=== PATIENT | female | born 1985 | race Caucasian/White ===

== ENCOUNTER 2023-05-09 17:48 | Emergency (ER) | payer OTHER, SELFPAY ==
[2023-05-09 17:50] VITALS: BP 157/74; PULSE 112; RESP 18; O2SAT 98; BMI 24.2
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
[2023-05-09] MEDS: ACETAMINOPHEN 500 MG TABLET 1000 MG PO (18:05)
[2023-05-09] MEDS: BACITRACIN 0.9 GM PACKET 1 PACKET TOPICAL (18:05)
[2023-05-09] MEDS: ADACEL DIPH,PERTUSS(ACELL),TET VAC/PF 0.5 ML ADULT SYRINGE IM (18:05)
[2023-05-09] MEDS: IBUPROFEN 600 MG TABLET PO (18:05)
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
== END 2023-05-09 18:16 | disposition home or self-care (01) ==
PROVIDERS: Emergency Provider Emergency Medicine
DX: T23.232A Burn of second degree of multiple left fingers (nail), not including thumb, initial encounter (principal); X10.2XXA Contact with fats and cooking oils, initial encounter; Z23 Encounter for immunization
CPT/HCPCS: 90471; 90715; 99284

== ENCOUNTER 2024-09-01 06:26 | Emergency (ER) | payer SELFPAY ==
[2024-09-01 06:34] VITALS: BP 132/76; PULSE 43; TEMP 37.2; O2SAT 98; BMI 22.7
[2024-09-01 07:14] VITALS: BP 120/80; PULSE 100; O2SAT 100
[2024-09-01] MEDS: KETOROLAC TROMETHAMINE 30 MG/ML VIAL 15 MG IVP (07:41)
[2024-09-01 07:47] LABS: Basophils Absolute Auto 0.1 10^3/uL (0.0-0.1); Basophils Percent Auto 0.3 % (0.2-2.0); Eosinophils Absolute Auto 0.1 10^3/uL (0.0-0.7); Eosinophils Percent Auto 0.8 % (0.9-7.0); Hematocrit 37.4 % (36.0-48.0); Hemoglobin 12.6 g/dL (12.0-16.0); Immature Granulocytes Abs Auto 0.07 10^3/uL (0.00-0.03); Immature Granulocytes Pct Auto 0.5 % (0.0-0.5); Lymphocytes Absolute Auto 1.7 10^3/uL (1.2-3.8); Lymphocytes Percent Auto 11.8 % (20.5-60.0); Mean Corpuscular HGB Conc 33.7 g/dL (29.9-35.2); Mean Corpuscular Hemoglobin 31.7 pg (26.7-34.0); Mean Platelet Volume 11.6 fL (9.5-13.5); Monocytes Absolute Auto 1.2 10^3/uL (0.3-0.8); Monocytes Percent Auto 8.4 % (1.7-12.0); Neutrophils Absolute Auto 11.4 10^3/uL (1.4-6.5); Neutrophils Percent Auto 78.2 % (43.0-75.0); Platelet Count 262 10^3/uL (150-450); Red Blood Count 3.98 10^6/uL (4.20-5.40); White Blood Count 14.6 10^3/uL (4.0-11.0)
[2024-09-01 07:57] LABS: HCG Qualitative NEGATIVE (NEGATIVE); Internal Control Within Normal Limits
[2024-09-01 08:01] LABS: INR 1.01; Prothrombin Time 10.7 sec (9.0-11.6)
[2024-09-01 08:08] LABS: Alanine Aminotransferase 23 U/L (14-59); Albumin Globulin Ratio 0.9; Albumin Level 3.4 g/dL (3.4-5.0); Alkaline Phosphatase 76 U/L (46-116); Anion Gap 14.2; Aspartate Amino Transferase 15 U/L (15-37); BUN Creatinine Ratio 11.8; Bilirubin Total 0.4 mg/dL (0.2-1.0); Calcium 8.5 mg/dL (8.5-10.1); Carbon Dioxide 26.2 mmol/L (21.0-32.0); Chloride 106 mmol/L (98-107); Estimated GFR (African America >60 (>=60 mL/min/1.73m^2); Estimated GFR (Non-African Ame >60 (>=60 mL/min/1.73m^2); Globulin 3.6 g/dL; Glucose 95 mg/dL (74-106); Potassium 3.4 mmol/L (3.5-5.1); Sodium 143 mmol/L (136-145)
[2024-09-01 08:11] LABS: Lactate/Lactic Acid 0.7 mmol/L (0.4-2.0)
--- NOTE | 2024-09-01 08:11 | CT_ITS ---
[address] [address] Patient Name: JUAN JARQUIN MRN: [id number] date: 1985 Sex: F Assigned Patient Location: ER Current Patient Location: ER Accession/Order Number: [id number] Exam Date: 09/01/2024 08:25 Report Date: 09/01/2024 08:55 At the request of: DANETTE JOSEPH Procedure: CT abdomen pelvis w con EXAMINATION: CT abdomen pelvis w con HISTORY: perirectal abscess ? COMPARISON: No relevant comparison available. TECHNIQUE: CT images were created with IV contrast. Axial, Coronal, and Sagittal images. Dose reduction techniques were achieved by using automated exposure control and/or adjustment of mA and/or kV according to patient size and/or use of iterative reconstruction technique. FINDINGS: LUNG BASES: 7 mm subpleural nodule left lower lobe axial image #23 LIVER: Hepatomegaly with no focal mass BILIARY: No visible dilatation or calcification. PANCREAS: No lesion, fluid collection, ductal dilatation, or atrophy. SPLEEN: No enlargement or focal lesion. ADRENALS: No mass or enlargement. KIDNEYS: No mass, obstruction, or calcification. BOWEL/MESENTERY: No visible mass, obstruction, or bowel wall thickening. AORTA/VASCULAR: No aneurysm or dissection. RETROPERITONEUM: No mass or adenopathy. LYMPH NODES: No adenopathy. URINARY BLADDER: No visible focal wall thickening, lesion, or calculus. PELVIC ORGANS: Dilated left periuterine vessels, consider uterine vein reflux ABDOMINAL WALL: No mass or hernia. BONES: No bony lesion or fracture. OTHER: Rim-enhancing fluid collection adjacent to the right rectum measuring 2.7 x 1.9 cm on axial image #143 CT/CT abdomen pelvis w con IMPRESSION: 2.7 cm right perirectal abscess. Electronically authenticated by: JONES SHIELDS Date: 09/01/2024 08:55
--- NOTE | 2024-09-01 09:08 | ED.GENADUL1 ---
HPI HPI - General Adult General Chief complaint: Urogenital-Female Stated complaint: LOWER ABDOMINAL PAIN Time Seen by Provider: 09/01/24 07:21 Source: patient Mode of arrival: walk-in Limitations: no limitations History of Present Illness HPI narrative: The patient is coming to us with few days history of perirectal pain and chills at home the patient is complaining of severe pain in the rectal area, she denies any nausea or vomiting at the moment she also denies any other concerns She mentioned that she never had any similar presentation before Related Data Previous Rx's ?Medication ?Instructions ?Recorded bacitracin zinc 500 unit/gram 1 applic topical BID 7 days #14 05/09/23 topical ointment grams ibuprofen 600 mg tablet 600 mg PO TID PRN pain #30 tabs 05/09/23 Allergies Allergy/AdvReac Type Severity Reaction Status Date / Time Penicillins Allergy Hives Verified 09/01/24 06:37 Opioid HPI Opioid Management Most Recent Opioid Data: Last Pain Scale 10 09/01/24 09:17 09/01/24 Last ED Pain Assessment 09/01/24 10:02 Last MAR Pain Assessment 09/01/24 09:17 Review of Systems ROS Status of ROS 10 or more systems reviewed and unremarkable except as noted in history and below PFSH PFSH Social History Little interest or pleasure in doing things: not at all Feeling down, depressed, or hopeless: not at all Exam Narrative Exam Narrative: Nurses notes and vital signs reviewed and patient is not hypoxic. Per rectal exam: The patient is very sensitive to examination that she is in a lot of pain . Pain is mostly in the right side and there is a area of redness noted on examination that extending around the rectum on the right side patient is very tender to rectal examination and she is not allowing a proper exam because of the pain General: Well-appearing and in no apparent distress. Skin: Warm, dry, no pallor noted. No rash. Head: Normocephalic, atraumatic. Neck: Supple, non-tender. Eye: Pupils are equal, round and EOMI. No scleral icterus. Ears, Nose, Mouth, and Throat: TM are clear, no nasal mucosal hypertrophy. Oral mucosa is moist, no posterior oropharynx erythema, uvula is mid-line Cardiovascular: Regular Rate and Rhythm without murmur, gallop or rub. Respiratory: No accessory muscle use or respiratory distress. Lungs are clear to auscultation, no wheezing, rales or rhonchi Chest Wall: no tenderness Back: No midline thoracic or lumbar vertebral tenderness. No CVA tenderness Musculoskeletal: normal ROM, no calf or popliteal tenderness, no lower extremity edema/swelling GI: Abdomen is soft, non-distended. Normal bowel sounds. No masses appreciated. No tenderness to palpation. No rebound, guarding, or rigidity noted. Neurological: A&O x4. No cranial nerve dysfunction observed. No truncal ataxia. Moves all extremities. Sensation intact. Psychiatric: Cooperative and interactive. Normal mood and affect. Constitutional Vital Signs, click to edit/add: Last Vital Signs Temp 98.9 F 09/01/24 06:34 Pulse 76 09/01/24 09:15 Resp 18 09/01/24 09:15 BP 108/83 09/01/24 09:15 Pulse Ox 99 09/01/24 09:15 O2 Del Method Room Air 09/01/24 09:15 Course Vital Signs Vital signs: Vital Signs Temperature 98.9 F 09/01/24 06:34 Pulse Rate 43 L 09/01/24 06:34 Respiratory Rate 16 09/01/24 06:34 Blood Pressure 132/76 09/01/24 06:34 Pulse Oximetry 98 09/01/24 06:34 Oxygen Delivery Method Room Air 09/01/24 06:34 Temperature 98.9 F 09/01/24 06:34 Pulse Rate 76 09/01/24 09:15 Respiratory Rate 18 09/01/24 09:15 Blood Pressure 108/83 09/01/24 09:15 Pulse Oximetry 99 09/01/24 09:15 Oxygen Delivery Method Room Air 09/01/24 09:15 Medical Decision Making [facility] Narrative Medical decision making narrative: The patient CBC shows leukocytosis Chemistry showing no acute significant pathology and the patient had a CAT scan showing perirectal abscess of 2.7 cm With the fact that the patient is having a lot of pain she initially was treated with Toradol after that she was provided also with morphine for pain She had some drainage in the area that is open foul-smelling pus that was spontaneous on the bedding The patient was covered with Cipro and Flagyl for infection The patient right now Case discussed with the Dr Powell general surgery from [facility] and he agreed that the patient can be transferred under the care of the hospitalist Dr. Miles accepted the patient and the patient right now awaiting to be transferred The at the bedside opted to take the patient by private car so they would not wait for the transfer to take longer to get there Lab Data Labs: Lab Results 09/01/24 Range/Units 07:30 WBC 14.6 H (4.0-11.0) 10^3/uL RBC 3.98 L (4.20-5.40) 10^6/uL Hgb 12.6 (12.0-16.0) g/dL Hct 37.4 (36.0-48.0) % MCV 94.0 (81.0-99.0) fL MCH 31.7 (26.7-34.0) pg MCHC 33.7 (29.9-35.2) g/dL RDW 12.0 (11.0-15.0) % Plt Count 262 (150-450) 10^3/uL MPV 11.6 (9.5-13.5) fL Neut % (Auto) 78.2 H (43.0-75.0) % Lymph % (Auto) 11.8 L (20.5-60.0) % [place] % (Auto) 8.4 (1.7-12.0) % Eos % (Auto) 0.8 L (0.9-7.0) % Baso % (Auto) 0.3 (0.2-2.0) % Neut # (Auto) 11.4 H (1.4-6.5) 10^3/uL Lymph # (Auto) 1.7 (1.2-3.8) 10^3/uL [place] # (Auto) 1.2 H (0.3-0.8) 10^3/uL Eos # (Auto) 0.1 (0.0-0.7) 10^3/uL Baso # (Auto) 0.1 (0.0-0.1) 10^3/uL Abs Immat Gran (auto) 0.07 H (0.00-0.03) 10^3/uL Imm/Tot Granulo (auto) 0.5 (0.0-0.5) % PT 10.7 (9.0-11.6) sec INR 1.01 Sodium 143 (136-145) mmol/L Potassium 3.4 L (3.5-5.1) mmol/L Chloride 106 (98-107) mmol/L Carbon Dioxide 26.2 (21.0-32.0) mmol/L Anion Gap 14.2 BUN 10.0 (7.0-18.0) mg/dL Creatinine 0.85 (0.55-1.02) mg/dL Est GFR ( Amer) >60 (>=60 mL/min/1.73m^2) Est GFR (Non-Af Amer) >60 (>=60 mL/min/1.73m^2) BUN/Creatinine Ratio 11.8 Glucose 95 (74-106) mg/dL Lactate 0.7 (0.4-2.0) mmol/L Calcium 8.5 (8.5-10.1) mg/dL Total Bilirubin 0.4 (0.2-1.0) mg/dL AST 15 (15-37) U/L ALT 23 (14-59) U/L Alkaline Phosphatase 76 (46-116) U/L Total Protein 7.0 (6.4-8.2) g/dL Albumin 3.4 (3.4-5.0) g/dL Globulin 3.6 g/dL Albumin/Globulin Ratio 0.9 Serum HCG, Qual Negative (NEGATIVE) Discharge Plan Discharge Chief Complaint: Urogenital-Female Clinical Impression: Abscess, perirectal Patient Disposition: [facility] Time of Disposition Decision: 12:16
[2024-09-01 09:15] VITALS: BP 108/83; PULSE 76; O2SAT 99
[2024-09-01] MEDS: MORPHINE SULFATE 2 MG/ML SYRINGE IV ×2 (09:17→17:04)
[2024-09-01] MEDS: LIDOCAINE HCL 1% 100 MG/10 ML MDV INJ (09:18)
[2024-09-01] MEDS: METRONIDAZOLE/SODIUM CHLORIDE 500 MG/100 ML PREMIX 100 MG IV (10:06)
[2024-09-01] MEDS: CIPROFLOXACIN IN 5 % DEXTROSE 400 MG/200 ML PREMIX 200 MG IV (11:05)
[2024-09-01 13:58] VITALS: BP 121/75; PULSE 78; O2SAT 99
--- NOTE | 2024-09-01 17:05 | PC.NURSE ---
[facility] here at this time for transport.
== END 2024-09-01 17:10 | disposition short-term general hospital (02) ==
PROVIDERS: Emergency Provider Emergency Medicine
DX: K61.1 Rectal abscess (principal)
CPT/HCPCS: 36415; 74177; 80053; 83605; 84703; 85025; 85610; 87040; 96365; 96366; 96368; 96375; 96376; 99285; J0744; J1836; J1885; J2270; Q9967

== ENCOUNTER 2024-10-26 18:09 | Emergency (ER) | payer SELFPAY ==
--- OUTSIDE RECORDS SUMMARY | 2024-10-26 18:18 | XMS_ITS | CCD ---
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 Name Role Phone PHYSICIAN, DEFAULT Unavailable Unavailable PHYSICIAN, DEFAULT Unavailable Unavailable REQUEST, NONE LISTED Primary Care Unavailable BASILIO DASILVA Admitting Unavailable BASILIO DASILVA Consulting Unavailable BASILIO DASILVA Attending Unavailable REQUEST, NONE LISTED Admitting Unavailable REQUEST, NONE LISTED Attending Unavailable Unavailable Primary Care Provider Unavailabl e Unallocated , Noms Provider Primary Care Provi radhames CRISTOFER POWELL Attending Unavailable Ha Roman Consulting Unavailable NON STAFF Primary Care Unavailable Rajesh Noriega Admitting Unavailable Rajesh Noriega Attending Unavailable Royal Malcolm Consulting Unavailable Cristofer Powell Consulting Unavailable Cristofer Powell Attending Unavailable Cristofer Powell Referring Unavailable NON STAFF Primary Care Unavailable Cristofer Powell Admitting Unavailable Allergies Allergy Classification Reported Allergen(s) Allergy Type Date of Onset Reaction(s) Facility (3 sources) Penicillins Drug allergy (disorder) 6 [facility] Repository (2 sources) Penicillins Drug Intolerance 7 [facility] (1 source) Penicillins Drug allergy (disorder) 4 [facility] Repository Medications Current Medications Medication Drug Class(es) Dates Sig (Normalized) Sig (Original) acetaminophen 325 mg / oxyCODONE hydrochloride 5 mg oral tablet (2 sources) Opioid Agonist Start: 09-04-2024 take 1 tablet by mouth every eight hours oxyCODONE-acetamin ophen (Percocet) 5-325 MG tablet Take 1 tablet by mouth every 8 (eight) hours 09/04/2024 Active [id number] 200 actuat albuterol 0.09 mg/actuat metered dose inhaler (1 source) beta2-Adrenergic Agonist Start: 12-06-2023 take 1 puff(s) by inhalation four times daily Albuterol Sulfate Active 2 PUFF INHALATION Four times daily 8.5 December 06, 2023 12:00am benzonatate 200 mg oral capsule (1 source) Non-narcotic Antitussive Start: 12-06-2023 Benzonatate Active 200 MG PO 2-3 TIMES PER DAY 30 December 06, 2023 12:00am doxycycline hyclate 100 mg oral capsule (1 source) Tetracycline-class Drug Start: 12-06-2023 take 100 mg by mouth twice daily Doxycycline Hyclate Active 100 MG PO Twice daily 20 December 06, 2023 12:00am levoFLOXacin 750 mg oral tablet (2 sources) Quinolone Antimicrobial Start: 09-03-2024 take 1 tablet by mouth once daily levoFLOXacin (Levaquin) 750 MG tablet TAKE 1 TABLET BY MOUTH DAILY for 12 days 09/03/2024 Active metroNIDAZOLE 500 mg oral tablet (2 sources) Nitroimidazole Antimicrobial Start: 09-03-2024 take 1 tablet by mouth every eight hours metroNIDAZOLE (Flagyl) 500 MG tablet TAKE 1 TABLET BY MOUTH EVERY 8 HOURS for 12 days 09/03/2024 Active predniSONE 20 mg oral tablet (1 source) Start: 12-06-2023 take 20 mg by mouth twice daily Prednisone Active 20 MG PO Twice daily 10 5 December 06, 2023 12:00am Problems Problem Classification Problem Date Documented Da te Episodic/Chronic Anal and rectal conditions (6 sources) Perirectal abscess; Translations: [Rectal abscess] Onset: 09-01-2024 09-07-2024 Episodic Diseases of white blood cells (1 source) Elevated white blood cell count, unspecified; Translations: [Elevated white blood cell count, unspecified] Onset: 09-01-2024 Chronic Other lower respiratory disease (3 sources) Cough; Translations: [COUGH] Onset: 01-01-2021 Episodic Other upper respiratory infections (1 source) Acute upper respiratory infection, unspecified; Translations: [ACUTE UP RESPIRATORY INFECTION UNS] Onset: 01-02-2021 Episodic Skin and subcutaneous tissue infections (1 source) Cutaneous abscess, unspecified; Translations: [Cutaneous abscess, unspecified] Onset: 09-01-2024 Episodic Unclassified (1 source) CONTACT W/AND (SUSP) EXPOS COVID-19; Translations: [CONTACT W/AND (SUSP) EXPOS COVID-19] Onset: 01-02-2021 Viral infection (1 source) Viral infection, unspecified; Translations: [VIRAL INFECTION UNSPECIFIED] Onset: 01-02-2021 Episodic Results Test Name Value Interpretation Reference Range Facility Complete Blood Count Auto Di ffon 09-03-2024 Basophils (Bld) [#/Vol] 0.1 10*3/uL Normal 0.0-0.2 [facility] Comment on above: Result Comment: PERF ORMED BY: [place] [address] PATHOLOGIST SYSTEM DISPATCHER ENRIQUE TENA M.D. Performed By: #### C BC #### [address] Basophils/100 WBC (Bld) 0.7 % Normal . [facility] Comment on above: Performed By: #### C BC #### [address] Eosinophils (Bld) [#/Vol] 0.3 10*3/uL Normal 0.0-0.45 [facility] Comment on above: Performed By: #### C BC #### [address] Eosinophils/100 WBC (Bld) 2.4 % Normal . [facility] Comment on above: Performed By: #### C BC #### [address] Erythrocyte distribution width (RBC) [Ratio] 12.4 % Normal 11.9-15.3 [facility] Comment on above: Performed By: #### C BC #### [address] Hematocrit (Bld) [Volume fraction] 32.5 % Low 34.0-46.4 [facility] Comment on above: Performed By: #### C BC #### [address] Hemoglobin (Bld) [Mass/Vol] 10.9 g/dL Low 11.8-15.4 [facility] Comment on above: Performed By: #### C BC #### [address] Lymphocytes (Bld) [#/Vol] 1.8 10*3/uL Normal 1.00-4.8 [facility] Comment on above: Performed By: #### C BC #### [address] Lymphocytes/100 WBC (Bld) 17.3 % Normal . [facility] Comment on above: Performed By: #### C BC #### [address] MCH (RBC) [Entitic mass] 31.3 pg Normal 24.7-34.3 [facility] Comment on above: Performed By: #### C BC #### [address] MCV (RBC) [Entitic vol] 93.0 fL Normal 80-100 [facility] Comment on above: Performed By: #### C BC #### [address] Mean Corpuscular HGB Conc 33.6 g/dL Normal 32.0-35.0 [facility] Comment on above: Performed By: #### C BC #### [address] Monocytes (Bld) [#/Vol] 0.9 10*3/uL High 0.0-0.8 [facility] Comment on above: Performed By: #### C BC #### [address] Monocytes/100 WBC (Bld) 8.4 % Normal . [facility] Comment on above: Performed By: #### C BC #### [address] Neutrophils (Bld) [#/Vol] 7.3 10*3/uL Normal 1.8-7.7 [facility] Comment on above: Performed By: #### C BC #### [address] Neutrophils/100 WBC (Bld) 71.2 % Normal . [facility] Comment on above: Performed By: #### C BC #### [facility] [address] NRBC% 0.0 /100{WBC} Normal 0-0.5 [facility] Comment on above: Performed By: #### C BC #### [address] Platelet mean volume (Bld) [Entitic vol] 9.7 fL Normal 6.3-10.7 [facility] Comment on above: Performed By: #### C BC #### [address] Platelets (Bld) [#/Vol] 218 10*3/uL Normal 150-450 [facility] Comment on above: Performed By: #### C BC #### [address] RBC (Bld) [#/Vol] 3.50 10*6/uL Low 3.60-5.00 [facility] Comment on above: Performed By: #### C BC #### [address] WBC (Bld) [#/Vol] 10.2 10*3/uL Normal 3.8-11.6 [facility] Comment on above: Performed By: #### C BC #### [address] Aerobic Cultureon 09-02-2024 Aerobic Culture Comment perirectal abscess Result Tab Codes Rare Normal Skin Nelly 2 Days Comment perirectal abscess Anaerobic Culture Results Moderate Mixed Anaerobic Nelly 3 Days Comment perirectal abscess Gram Stain Result 4+ White Blood Cells 1+ Gram Positive Cocci 1+ Gram Positive Cocci in Chains Rare Gram Positive Bacilli Rare Gram Negative Bacilli PERFORMED BY: [place] [address] PATHOLOGIST SYSTEM DISPATCHER ENRIQUE TENA M.D. Normal [facility] Comment on above: Performed By: #### G S, AERC #### [address] Basic Metabolic Panelon 12- Anion gap [Moles/Vol] 11.5 mmol/L Normal 6.0-15.0 Th e [facility] Comment on above: Performed By: #### C BC, BMP, MG #### [address] Calcium [Mass/Vol] 8.7 mg/dL Normal 8.6-10.3 [facility] Comment on above: Performed By: #### C BC, BMP, MG #### [address] Chloride [Moles/Vol] 104 mmol/L Normal 98-107 [facility] Comment on above: Performed By: #### C BC, BMP, MG #### [address] CO2 [Moles/Vol] 26.6 mmol/L Normal 21.0-31.0 The [facility] Comment on above: Performed By: #### C BC, BMP, MG #### [address] Creatinine [Mass/Vol] 0.69 mg/dL Normal 0.60-1.20 [facility] Comment on above: Performed By: #### C BC, BMP, MG #### [address] Creatinine Clr Calc Pharmacy 80.97 Normal [facility] Comment on above: Performed By: #### C BC, BMP, MG #### [place] [address] [place] GFR/1.73 sq M.predicted MDRD (S/P/Bld) [Vol rate/Area] mL/min/{1.73_m2} Normal [facility] Comment on above: Performed By: #### C BC, BMP, MG #### [address] [place] [address] [place] Glucose [Mass/Vol] 93 mg/dL Normal 70-100 [facility] Comment on above: Result Comment: [facility] [place] Glucose Reference Range is dependent on time and content of last meal. Glucose of more than 200 mg/dL in a nonstressed, ambulatory subject supports the diagnosis of Diabetes Mellitus. ADA recommended reference range Performed By: #### C BC, BMP, MG #### [address] Potassium [Moles/Vol] 4.1 mmol/L Normal 3.5-5.1 [facility] Comment on above: Performed By: #### C BC, BMP, MG #### [address] Sodium [Moles/Vol] 138 mmol/L Normal 136-145 [facility] Comment on above: Performed By: #### C BC, BMP, MG #### [address] Urea nitrogen [Mass/Vol] 9 mg/dL Normal 7-25 [facility] Comment on above: Performed By: #### C BC, BMP, MG #### [address] Coagulation Profileon 2023 aPTT Coag (Bld) [Time] 30.8 s Normal 25.1-36.5 [facility] Comment on above: Result Comment: A he matocrit value greater than 55% may lead to inaccurate results in coagulation testing. Patients having hematocrit values >55% require a special collection tube for coagulation studies. Please contact the laboratory at [phone] for redraw instructions. PERFORMED BY: [place] [address] PATHOLOGIST SYSTEM DISPATCHER ENRIQUE TENA M.D. Performed By: #### P P #### [address] INR Coag (PPP) [Relative time] 1.3 {INR} Normal [facility] Comment on above: Result Comment: INR Therapeutic Range A) Pre- and Peroperative OAT started two weeks before surgery. NOT HIP SURGERY: 1.5 - 2.5 HIP SURGERY: 2 - 3 B) Primary and secondary prevention of venous THROMBOSIS: 2 - 3 C) Active venous thrombosis, pulmonary embolism and prevention of recurrent venous thrombosis: 2 - 3 D) Prevention of arterial thromboembolism including patients with mechanical heart valves: 3 - 4.5 Performed By: #### P P #### [address] PT Coag (PPP) [Time] 15.2 s High 9.0-12.9 [facility] Comment on above: Result Comment: A he matocrit value greater than 55% may lead to inaccurate results in coagulation testing. Patients having hematocrit values >55% require a special collection tube for coagulation studies. Please contact the laboratory at [phone] for redraw instructions. Performed By: #### P P #### [address] Complete Blood Count Auto Di ffon 09-02-2024 Basophils (Bld) [#/Vol] 0.1 10*3/uL Normal 0.0-0.2 [facility] Comment on above: Result Comment: PERF ORMED BY: [place] [address] PATHOLOGIST SYSTEM DISPATCHER ENRIQUE TENA M.D. Performed By: #### C BC, BMP, MG #### [address] Basophils/100 WBC (Bld) 0.6 % Normal . [facility] Comment on above: Performed By: #### C BC, BMP, MG #### [address] Eosinophils (Bld) [#/Vol] 0.1 10*3/uL Normal 0.0-0.45 [facility] Comment on above: Performed By: #### C BC, BMP, MG #### [address] Eosinophils/100 WBC (Bld) 0.7 % Normal . [facility] Comment on above: Performed By: #### C BC, BMP, MG #### [address] Erythrocyte distribution width (RBC) [Ratio] 12.1 % Normal 11.9-15.3 [facility] Comment on above: Performed By: #### C BC, BMP, MG #### [address] Hematocrit (Bld) [Volume fraction] 36.7 % Normal 34.0-46.4 [facility] Comment on above: Performed By: #### C BC, BMP, MG #### [address] Hemoglobin (Bld) [Mass/Vol] 12.0 g/dL Normal 11.8-15.4 [facility] Comment on above: Performed By: #### C BC, BMP, MG #### [address] Lymphocytes (Bld) [#/Vol] 1.7 10*3/uL Normal 1.00-4.8 [facility] Comment on above: Performed By: #### C BC, BMP, MG #### [address] Lymphocytes/100 WBC (Bld) 9.8 % Normal . [facility] Comment on above: Performed By: #### C BC, BMP, MG #### [address] MCH (RBC) [Entitic mass] 30.5 pg Normal 24.7-34.3 [facility] Comment on above: Performed By: #### C BC, BMP, MG #### [address] MCV (RBC) [Entitic vol] 93.2 fL Normal 80-100 [facility] Comment on above: Performed By: #### C BC, BMP, MG #### [address] Mean Corpuscular HGB Conc 32.8 g/dL Normal 32.0-35.0 [facility] Comment on above: Performed By: #### C BC, BMP, MG #### [facility] [address] [place] [address] [place] Monocytes (Bld) [#/Vol] 1.7 10*3/uL High 0.0-0.8 [facility] Comment on above: Performed By: #### C BC, BMP, MG #### [facility] [address] [place] [address] [place] Monocytes/100 WBC (Bld) 9.9 % Normal . [facility] Comment on above: Performed By: #### C BC, BMP, MG #### [facility] [address] [place] [address] [place] Neutrophils (Bld) [#/Vol] 13.4 10*3/uL High 1.8-7.7 [facility] Comment on above: Performed By: #### C BC, BMP, MG #### [facility] [address] [place] [address] [place] Neutrophils/100 WBC (Bld) 79.0 % Normal . [facility] Comment on above: Performed By: #### C BC, BMP, MG #### [facility] [address] [place] [address] [place] NRBC% 0.0 /100{WBC} Normal 0-0.5 [facility] Comment on above: Performed By: #### C BC, BMP, MG #### [facility] [address] [place] [address] [place] Platelet mean volume (Bld) [Entitic vol] 9.9 fL Normal 6.3-10.7 [facility] Comment on above: Performed By: #### C BC, BMP, MG #### [facility] [address] [place] [address] [place] Platelets (Bld) [#/Vol] 251 10*3/uL Normal 150-450 [facility] Comment on above: Performed By: #### C BC, BMP, MG #### [facility] [address] [place] [address] [place] RBC (Bld) [#/Vol] 3.94 10*6/uL Normal 3.60-5.00 [facility] Comment on above: Performed By: #### C BC, BMP, MG #### [address] WBC (Bld) [#/Vol] 17.0 10*3/uL High 3.8-11.6 [facility] Comment on above: Performed By: #### C BC, BMP, MG #### [address] Gram Stainon 09-02-2024 Microscopic observation Gram stain Nom (Unsp spec) Comment perirectal abscess Gram Stain Result 4+ White Blood Cells 1+ Gram Positive Cocci 1+ Gram Positive Cocci in Chains Rare Gram Positive Bacilli Rare Gram Negative Bacilli PERFORMED BY: [place] [address] PATHOLOGIST SYSTEM DISPATCHER ENRIQUE TENA M.D. Normal [facility] Comment on above: Performed By: #### G S, AERC #### [address] Gram stainon 09-02-2024 Interpretation and review of laboratory results Abnormal [facility] Microscopic observation Gram stain Nom (Unsp spec) 4+ White Blood Cells Abnormal [facility] Microscopic observation Gram stain Nom (Unsp spec) Negative Abnormal [facility] Comment perirectal abscess [facility] e Laboratory - Microbiology an d Antimicrobial susceptibilityon 09-02-2024 Microscopic observation Gram stain Nom (Unsp spec) Positive Abnormal [facility] Magnesiumon 09-02-2024 Magnesium [Mass/Vol] 1.8 mg/dL Low 1.9-2.7 [facility] Comment on above: Result Comment: PERF ORMED BY: [place] [address] PATHOLOGIST SYSTEM DISPATCHER ENRIQUE TENA M.D. Performed By: #### C BC, BMP, MG #### [address] Covid-19 PCR (CVDTBH)on 12-19 Covid-19 PCR NOT DETECTED Normal NOT DETECTED [facility] Comment on above: Result Comment: This test is not yet approved or cleared by the [place] FDA. When there are no FDA-approved or cleared tests available, and other criteria are met, FDA can make tests available under an emergency access mechanism called an Emergency Use Authorization (EUA). The EUA for this test is supported by the [place] of Health and Human Service's (HHS's) declaration that circumstances exist to justify the emergency use of in vitro diagnostics for the detection and/or diagnosis of the virus that causes COVID-19. This EUA will remain in effect (meaning this test can be used) for the duration of the COVID-19 declaration justifying emergency of IVDs, unless it is terminated or revoked by FDA (after which the test may no longer be used). When diagnostic testing is negative, the possibility of a false negative should be considered in the context of a patient's recent exposures and the presence of clinical signs and symptoms consistent with SARS-CoV-2. Performed By: #### C [facility] #### [facility] [address] [place] [address] Bea Marr Vital Signs Date Time Vital Sign Value Performing Clinician Facility 09-07-2024 14:58-0500 Body height 154.9 cm [facility] [employer] [facility] 09-07-2024 14:58-0500 Body mass index (BMI) [Ratio] 23.24 kg/m2 [facility] 09-07-2024 14:58-0500 Body weight 55.79 kg [facility] 12-06-2023 11:36-0400 Body height 154.94 cm [facility] 12-06-2023 11:36-0400 Body mass index (BMI) [Ratio] 23.1 kg/m2 [facility] 12-06-2023 11:36-0400 Body temperature 99 [degF] [facility] 12-06-2023 11:36-0400 Body weight 55.56 kg [facility] 12-06-2023 11:36-0400 Heart rate 94 /min [facility] 12-06-2023 11:36-0400 Respiratory rate 18 /min [facility] 12-06-2023 11:36-0400 SaO2% (BldA) [Mass fraction] 99 % [facility] Encounters Encounter Date Encounter Type Care Provider Facility Start: 09-07-2024 End: 09-07-2024 Postop follow up visit related to original px Cristofer Powell DO Work Phone: [facility] Comment on above: Perirectal abscess ( Primary Dx) Start: 09-07-2024 End: 09-07-2024 ambulatory CRISTOFER POWELL Not Available Start: 09-06-2024 End: 09-11-2024 ambulatory Cristofer Powell Facility:[facility] Start: 09-02-2024 End: 09-02-2024 External Result Encounter Cristofer Powell DO Work Phone: [facility] Unsolicited Start: 09-02-2024 End: 09-02-2024 External Result Encounter Cristofer Powell DO Work Phone: [facility] Unsolicited Start: 09-01-2024 End: 09-03-2024 Evaluation and management of inpatient Ha Itzrichytz Facility:[facility] Start: 12-06-2023 End: 12-06-2023 ambulatory [facility] Work Phone: Start: 12-06-2023 End: 12-06-2023 Patient encounter procedure [facility] Work Phone: Start: 01-01-2021 End: 01-01-2021 Patient encounter procedure NONE LISTED REQUEST Facility:[facility] Start: 02-19-2020 Patient encounter procedure NONE LISTED REQUEST Facility: Start: 01-11-2018 End: 01-12-2018 Ambulatory DEFAULT PHYSICIAN [facility] Procedures Date Procedure Procedure Detail Performing Clinician Start: 09-02-2024 Smr prim src gram/gi emsa stain bct fungi/cell Cristofer Powell DO Work Phone: Plan of Treatment Date Care Activity Detail Author Start: 09-26-2024 End: 09-26-2024 Patient encounter procedure 09/26/2024 2:30 PM EST Office Visit ANNA HOOD [address] [facility] [address] [place] [id number] Cristofer Powell DO [address] [facility] [address] [place] [address] [address] [facility] Payers Date Payer Category Payer Self-pay 2023 Private Health Insurance [id number] 1985 Unknown [id number] 2.16.84 [id number] 1985 Unknown [id number] [id number] [id number] 1985 Unknown [id number] 2.16.84 [id number] 1959 Unknown [id number] Unknown Unknown [id number] 2.16.8 [id number] Unknown [id number] 2.16.8 [id number] Social History Date Type Detail Facility Start: 12-06-2023 Tobacco smoking stat [facility] Smoker (finding) [facility] Start: 1985 Sex Assigned At Female F [facility] Start: 1985 Sex assigned at Not on file [facility] Start: 09-04-2024 Gender identity Not on file [facility] Start: 09-04-2024 [facility] History of tobacco use Cigarette Smoker [facility] Start: 09-04-2024 Tobacco use and exposure Smokeless tobacco non-user [facility] Start: 09-04-2024 Alcoholic beverage intake Current drinker of alcohol (finding) [facility] Start: 09-04-2024 History of Social function [facility] History of Present illness Narrative 09-07-2024 Cristofer Powell DO - 09/07/2024 3:15 PM EST Note Date & Type Note Facility 09-07-2024 History of Presen t illness Narrative Images from the original note were not included. Libertad Qiu 1985 Libertad Qiu is a 39 y.o. female presents for 1st pow i&d of perirectal abscess IP HPI: HPI Patient is status post incision and drainage of perirectal abscess. She has been getting her packing changes done daily. That is very touchy for her. She feels a lot better than she did before surgery. She has not having any nausea or vomiting. No fevers chills or sweats. She has not been scheduled back at work until September 28. OBJECTIVE: Physical Exam Exam conducted with a leather repairer present. Constitutional: Appearance: Normal appearance. She is not ill-appearing. Cardiovascular: Rate and Rhythm: Regular rhythm. Abdominal: General: There is no distension. Tenderness: There is no abdominal tenderness. Genitourinary: Comments: I removed packing. Wound is widely open with good granulation. There is no cellulitis or induration. Patient is very jumpy and we will not tolerate repacking. There was only about 6 cm of quarter-inch strip gauze in the wound. Small volume ASSESSMENT AND PLAN: Assessment/Plan Diagnoses and all orders for this visit: Perirectal abscess Status post incision and drainage of perirectal abscess, Gram stain etcetera shows multiple stool related nelly. I discussed with her all findings. As she is not tolerating packing changes and she has been doing it long enough plan is to discontinue packing changes. Anytime she has a bowel movement and several times a day she will wash her wound out in the shower with her removable shower head. That will allow her to pressure wash out the wound from any debris. She understands. She understands risk that this could turn into a fistula over time. She is okay to return to work on September 11 however she has not on the schedule to later. She is comfortable with that. She will continue her antibiotics until finished. No follow-ups on file. documented in this encounter [facility] Evaluation note Note Date & Type Note Facility Evaluation note No assessment information availa [facility] Work Phone: Evaluation note Note Date & Type Note Facility Evaluation note Diagnosis Perirectal abscess- Primary Abscess of anal and rectal regions documented in this encounter [facility] Summary Purpose Family History No Family History Records Found Relationship Condition Age at Onset Recorded Date/T doyle Not Specified Malignant neoplasm Unknown Heart disease Unknown Not Specified Heart disease Unknown Advance Directives No Advanced Directives Records Found Advance Directive Response Recorded Date/ Time Advance Directives No December 05 11:15am Chief Complaint and Reason for Visit Chief Complaint cough, sore throat, congestion Additional Source Comments INFORMATION SOURCE (unrecogn ized section and content) DATE CREATED AUTHOR 03/10/2018 [facility] DATE CREATED AUTHOR AUTHOR'S ORGANIZ ATION 01/02/2021 [facility] DATE CREATED AUTHOR AUTHOR'S ORGANIZ ATION 09/11/2024 [facility] EPIC DATE CREATED AUTHOR AUTHOR'S ORGANIZ ATION 10/21/2024 [facility] Care Teams (unrecognized sec tion and content) Team Status: Active Member Role Status Dates Outreach [facility] Primary Care Provider Active Team Status: Inactive Member Role Status Dates Sania Parada NP-C Attending Provider Active S tart: December 06, 2023 End: December 06, 2023 Outreach [facility] Primary Care Provider Active Start: December 06, 2023 End: December 06, 2023 Heavy Lift Rigger Relationship Specialty Start Date End Date Unallocated, Anna ProviderMD [address] [place] [id number] PCP - General Family Medicine 09/07/24 Goals (unrecognized section and content) Goals may be documented in a n alternate section Reason for Visit (unrecogniz ed section and content) Reason Comments 1st pow i&d of perirectal abscess IP FOR RECORDS PERTAINING TO PATIENTS WHO ARE OR HAVE BEEN ENROLLED IN A CHEMICAL DEPENDENCY/SUBSTANCEABUSE PROGRAM, SOME INFORMATION MAY BE OMITTED. This clinical summary was aggregated from multiple sources. Caution should be exercised in using it in the provision of clinical care. This summary normalizes information from multiple sources, and as a consequence, information in this document may materially change the coding, format and clinical context of patient data. In addition, data may be omitted in some cases. CLINICAL DECISIONS SHOULD BE BASED ON THE PRIMARY CLINICAL RECORDS. [facility] [employer] [facility]. provides no warranty or guarantee of the accuracy or completeness of information in this document.
[2024-10-26 18:22] VITALS: BP 114/82; PULSE 88; TEMP 36.8; O2SAT 99; BMI 23.6
== END 2024-10-26 19:29 | disposition left against medical advice (07) ==
PROVIDERS: Emergency Provider Emergency Medicine
DX: Z53.21 Procedure and treatment not carried out due to patient leaving prior to being seen by health care provider (principal)
CPT/HCPCS: 99281

== ENCOUNTER 2025-07-09 11:15 | Emergency (ER) | payer OTHER, SELFPAY ==
[2025-07-09 11:27] VITALS: BP 107/68; PULSE 82; TEMP 36.8; O2SAT 99; BMI 21.4
--- OUTSIDE RECORDS SUMMARY | 2025-07-09 12:20 | XMS_ITS | CCD ---
Author Organization [facility] Care Team Providers Care Data Transcriber Name Role Phone PHYSICIAN, DEFAULT Unavailable Unavailable PHYSICIAN, DEFAULT Unavailable Unavailable REQUEST, NONE LISTED Primary Care Unavailable BASILIO DASILVA Admitting Unavailable BASILIO DASILVA Consulting Unavailable BASILIO DASILVA Attending Unavailable REQUEST, NONE LISTED Admitting Unavailable REQUEST, NONE LISTED Attending Unavailable Unavailable Primary Care Provider Unavailabl e Unallocated MD, Noms Provider Primary Care Provi radhames CRISTOFER POWELL Attending Unavailable Ha Roman Consulting Unavailable NON STAFF Primary Care Unavailable Rajesh Noriega Admitting Unavailable Rajesh Noriega Attending Unavailable Royal Malcolm Consulting Unavailable Cristofer Powell Consulting Unavailable Cristofer Powell Attending Unavailable Cristofer Powell Referring Unavailable NON STAFF Primary Care Unavailable Cristofer Powell Admitting Unavailable NON STAFF Primary Care Provider Unavaillaura e Ragini Palumbo APRN Attending Provider [phone] NO PCP, NO PCP Primary Care Unavailable Allergies Allergy Classification Reported Allergen(s) Allergy Type Date of Onset Reaction(s) Facility (5 sources) Penicillins; Translations: [PENICILLINS] Drug allergy (disorder) 6 [facility] Repository (2 sources) Penicillins Drug Intolerance 7 [facility] (1 source) Penicillins Drug allergy (disorder) 4 [facility] Repository Medications Current Medications Medication Drug Class(es) Dates Sig (Normalized) Sig (Original) 8 hr acetaminophen 650 mg extended release oral tablet (1 source) Start: 09-03-2024 take 1 tablet by mouth every eight hours as needed for pain Acetaminophen 650 mg tablet extended release Active 650 MG PO Every 8 hours as needed for pain September 03, 2024 1:00am Complies with drug therapy acetaminophen 325 mg / oxyCODONE hydrochloride 5 mg oral tablet (3 sources) Opioid Agonist Start: 09-03-2024 take 1 tablet by mouth every eight hours oxyCODONE-acetamin ophen (Percocet) 5-325 MG tablet Take 1 tablet by mouth every 8 (eight) hours 09/04/2024 Active [id number] 200 actuat albuterol 0.09 mg/actuat metered dose inhaler (2 sources) beta2-Adrenergic Agonist Start: 12-06-2023 take 1 puff(s) by inhalation four times daily as needed for wheezing Albuterol Sulfate 90 mcg/actuation HFA aerosol inhaler Active 2 PUFF INHALATION Four times daily as needed for shortness of breath or wheezing 8.5 December 06, 2023 12:00am Complies with drug therapy benzonatate 200 mg oral capsule (2 sources) Non-narcotic Antitussive Start: 12-06-2023 Benzonatate 200 mg capsule Active 200 MG PO 2-3 TIMES PER DAY as needed for cough December 06, 2023 12:00am Complies with drug therapy dextromethorphan hydrobromide 15 mg / guaiFENesin 400 mg / pseudoephedrine hydrochloride 60 mg oral tablet (1 source) alpha-Adrenergic Agonist, Uncompetitive T-oqotbl-T-aspartat e Receptor Antagonist, Sigma-1 Agonist Start: 05-30-2025 take 4 tablets by mouth every twenty-four hours as needed Pseudoephedrine-Dm -Guaifenesin (Capmist Dm) 60-15-400 mg tablet Active 1 TAB PO EVERY 4-6 HOURS as needed for cold symptoms 14 5 May 30, 2025 12:00am do not exceed 4 doses per 24 hrs Complies with drug therapy docusate sodium 100 mg oral capsule (1 source) Start: 09-03-2024 take 1 capsule by mouth twice daily Docusate Sodium 100 mg Capsule Active 100 MG PO Twice daily September 03, 2024 1:00am Complies with drug therapy levoFLOXacin 750 mg oral tablet (3 sources) Quinolone Antimicrobial Start: 09-03-2024 take 1 tablet by mouth once daily levoFLOXacin (Levaquin) 750 MG tablet TAKE 1 TABLET BY MOUTH DAILY for 12 days 09/03/2024 Active metroNIDAZOLE 500 mg oral tablet (3 sources) Nitroimidazole Antimicrobial Start: 09-03-2024 take 1 tablet by mouth every eight hours metroNIDAZOLE (Flagyl) 500 MG tablet TAKE 1 TABLET BY MOUTH EVERY 8 HOURS for 12 days 09/03/2024 Active Completed/Discontinued Medications Medication Drug Class(es) Dates Sig (Normalized) Sig (Original) doxycycline hyclate 100 mg oral capsule (2 sources) Tetracycline-cla ss Drug Start: 12-06-2023 End: 09-03-2024 take 1 capsule by mouth twice daily Doxycycline Hyclate 100 mg capsule Discontinued 100 MG PO Twice daily 09 07December 06, 2023 12:00am September 03, 2024 12:45pm predniSONE 20 mg oral tablet (2 sources) Start: 12-06-2023 End: 09-03-2024 take 1 tablet by mouth twice daily Prednisone 20 mg tablet Discontinued 20 MG PO Twice daily 06 24December 06, 2023 12:00am September 03, 2024 12:45pm Problems Problem Classification Problem Date Documented Da te Episodic/Chronic Anal and rectal conditions (8 sources) Perirectal abscess; Translations: [Rectal abscess] Onset: 09-01-2024 09-07-2024 Episodic Diseases of white blood cells (2 sources) Elevated white blood cell count, unspecified; Translations: [Leukocytosis] Onset: 09-01-2024 09-11-2024 Chronic Other lower respiratory disease (3 sources) Cough; Translations: [COUGH] Onset: 01-01-2021 Episodic Other lower respiratory disease (1 source) Cough Onset: 06-07-2025 Episodic Other upper respiratory infections (3 sources) Acute upper respiratory infection, unspecified; Translations: [Viral upper respiratory tract infection] Onset: 01-02-2021 05-30-2025 Episodic Skin and subcutaneous tissue infections (2 sources) Cutaneous abscess, unspecified; Translations: [Abscess] Onset: 09-01-2024 09-03-2024 Episodic Unclassified (1 source) CONTACT W/AND (SUSP) EXPOS COVID-19; Translations: [CONTACT W/AND (SUSP) EXPOS COVID-19] Onset: 01-02-2021 Unclassified (1 source) Cough, unspecified; Translations: [Cough, unspecified] Onset: 06-07-2025 Unclassified (1 source) Cough, Congestion Onset: 06-07-2025 Viral infection (1 source) Viral infection, unspecified; Translations: [VIRAL INFECTION UNSPECIFIED] Onset: 01-02-2021 Episodic Results Test Name Value Interpretation Reference Range Facility Complete Blood Count Auto Di ffon 09-03-2024 Basophils (Bld) [#/Vol] 0.1 10*3/uL Normal 0.0-0.2 [facility] Comment on above: Result Comment: PERF ORMED BY: [place] [address] PATHOLOGIST DISK SANDER ENRIQUE TENA M.D. Performed By: #### C BC #### [address] Basophils/100 WBC (Bld) 0.7 % Normal . [facility] Comment on above: Performed By: #### C BC #### [address] Eosinophils (Bld) [#/Vol] 0.3 10*3/uL Normal 0.0-0.45 [facility] Comment on above: Performed By: #### C BC #### [address] Eosinophils/100 WBC (Bld) 2.4 % Normal . [facility] Comment on above: Performed By: #### C BC #### [address] Erythrocyte distribution width (RBC) [Ratio] 12.4 % Normal 11.9-15.3 [facility] Comment on above: Performed By: #### C BC #### [address] Hematocrit (Bld) [Volume fraction] 32.5 % Low 34.0-46.4 [facility] Comment on above: Performed By: #### C BC #### [address] Hemoglobin (Bld) [Mass/Vol] 10.9 g/dL Low 11.8-15.4 [facility] Comment on above: Performed By: #### C BC #### [address] Lymphocytes (Bld) [#/Vol] 1.8 10*3/uL Normal 1.00-4.8 [facility] Comment on above: Performed By: #### C BC #### [address] Lymphocytes/100 WBC (Bld) 17.3 % Normal . [facility] Comment on above: Performed By: #### C BC #### [address] MCH (RBC) [Entitic mass] 31.3 pg Normal 24.7-34.3 [facility] Comment on above: Performed By: #### C BC #### [address] MCV (RBC) [Entitic vol] 93.0 fL Normal 80-100 [facility] Comment on above: Performed By: #### C BC #### [address] Mean Corpuscular HGB Conc 33.6 g/dL Normal 32.0-35.0 [facility] Comment on above: Performed By: #### C BC #### [address] Monocytes (Bld) [#/Vol] 0.9 10*3/uL High 0.0-0.8 [facility] Comment on above: Performed By: #### C BC #### [address] Monocytes/100 WBC (Bld) 8.4 % Normal . [facility] Comment on above: Performed By: #### C BC #### [address] Neutrophils (Bld) [#/Vol] 7.3 10*3/uL Normal 1.8-7.7 [facility] Comment on above: Performed By: #### C BC #### [address] Neutrophils/100 WBC (Bld) 71.2 % Normal . [facility] Comment on above: Performed By: #### C BC #### [address] NRBC% 0.0 /100{WBC} Normal 0-0.5 The [facility] Comment on above: Performed By: #### C BC #### [address] Platelet mean volume (Bld) [Entitic vol] 9.7 fL Normal 6.3-10.7 The [facility] Comment on above: Performed By: #### C BC #### [address] Platelets (Bld) [#/Vol] 218 10*3/uL Normal 150-450 [facility] Comment on above: Performed By: #### C BC #### [address] RBC (Bld) [#/Vol] 3.50 10*6/uL Low 3.60-5.00 The [facility] Comment on above: Performed By: #### C BC #### [address] WBC (Bld) [#/Vol] 10.2 10*3/uL Normal 3.8-11.6 [facility] Comment on above: Performed By: #### C BC #### [address] Aerobic Cultureon 09-02-2024 Aerobic Culture Comment perirectal abscess Result Tab Codes Rare Normal Skin Nelly 2 Days Comment perirectal abscess Anaerobic Culture Results Moderate Mixed Anaerobic Nelly 3 Days Comment perirectal abscess Gram Stain Result 4+ White Blood Cells 1+ Gram Positive Cocci 1+ Gram Positive Cocci in Chains Rare Gram Positive Bacilli Rare Gram Negative Bacilli PERFORMED BY: [place] [address] PATHOLOGIST DISK SANDER ENRIQUE TENA M.D. Normal [facility] Comment on above: Performed By: #### G S, AERC #### [address] Basic Metabolic Panelon 12- Anion gap [Moles/Vol] 11.5 mmol/L Normal 6.0-15.0 Th e [facility] Comment on above: Performed By: #### C BC, BMP, MG #### [address] Calcium [Mass/Vol] 8.7 mg/dL Normal 8.6-10.3 The [facility] Comment on above: Performed By: #### C BC, BMP, MG #### [address] Chloride [Moles/Vol] 104 mmol/L Normal 98-107 [facility] Comment on above: Performed By: #### C BC, BMP, MG #### [address] CO2 [Moles/Vol] 26.6 mmol/L Normal 21.0-31.0 The [facility] Comment on above: Performed By: #### C BC, BMP, MG #### [address] Creatinine [Mass/Vol] 0.69 mg/dL Normal 0.60-1.20 [facility] Comment on above: Performed By: #### C BC, BMP, MG #### [address] Creatinine Clr Calc Pharmacy 80.97 Normal [facility] Comment on above: Performed By: #### C BC, BMP, MG #### [place] [address] [place] GFR/1.73 sq M.predicted MDRD (S/P/Bld) [Vol rate/Area] mL/min/{1.73_m2} Normal [facility] Comment on above: Performed By: #### C BC, BMP, MG #### [address] Glucose [Mass/Vol] 93 mg/dL Normal 70-100 The [facility] Comment on above: Result Comment: [facility] Glucose Reference Range is dependent on time and content of last meal. Glucose of more than 200 mg/dL in a nonstressed, ambulatory subject supports the diagnosis of Diabetes Mellitus. ADA recommended reference range Performed By: #### C BC, BMP, MG #### [address] Potassium [Moles/Vol] 4.1 mmol/L Normal 3.5-5.1 [facility] Comment on above: Performed By: #### C BC, BMP, MG #### [address] Sodium [Moles/Vol] 138 mmol/L Normal 136-145 The [facility] Comment on above: Performed By: #### C BC, BMP, MG #### [address] Urea nitrogen [Mass/Vol] 9 mg/dL Normal 7-25 [facility] Comment on above: Performed By: #### C BC, BMP, MG #### [address] Coagulation Profileon 2023 aPTT Coag (Bld) [Time] 30.8 s Normal 25.1-36.5 [facility] Comment on above: Result Comment: A he matocrit value greater than 55% may lead to inaccurate results in coagulation testing. Patients having hematocrit values >55% require a special collection tube for coagulation studies. Please contact the laboratory at [phone] for redraw instructions. PERFORMED BY: [place] [address] PATHOLOGIST DISK SANDER ENRIQUE TENA M.D. Performed By: #### P P #### [address] INR Coag (PPP) [Relative time] 1.3 {INR} Normal [facility] Comment on above: Result Comment: [...] 4.5 Performed By: #### P P #### [address] PT Coag (PPP) [Time] 15.2 s High 9.0-12.9 [facility] Comment on above: Result Comment: A he matocrit value greater than 55% may lead to inaccurate results in coagulation testing. Patients having hematocrit values >55% require a special collection tube for coagulation studies. Please contact the laboratory at [phone] for redraw instructions. Performed By: #### P P #### [address] Complete Blood Count Auto Di ffon 09-02-2024 Basophils (Bld) [#/Vol] 0.1 10*3/uL Normal 0.0-0.2 [facility] Comment on above: Result Comment: PERF ORMED BY: [place] [address] PATHOLOGIST DISK SANDER ENRIQUE TENA M.D. Performed By: #### C BC, BMP, MG #### [address] Basophils/100 WBC (Bld) 0.6 % Normal . [facility] Comment on above: Performed By: #### C BC, BMP, MG #### [address] Eosinophils (Bld) [#/Vol] 0.1 10*3/uL Normal 0.0-0.45 [facility] Comment on above: Performed By: #### C BC, BMP, MG #### [address] Eosinophils/100 WBC (Bld) 0.7 % Normal . [facility] Comment on above: Performed By: #### C BC, BMP, MG #### [address] Erythrocyte distribution width (RBC) [Ratio] 12.1 % Normal 11.9-15.3 [facility] Comment on above: Performed By: #### C BC, BMP, MG #### [address] Hematocrit (Bld) [Volume fraction] 36.7 % Normal 34.0-46.4 [facility] Comment on above: Performed By: #### C BC, BMP, MG #### [address] Hemoglobin (Bld) [Mass/Vol] 12.0 g/dL Normal 11.8-15.4 [facility] Comment on above: Performed By: #### C BC, BMP, MG #### [address] Lymphocytes (Bld) [#/Vol] 1.7 10*3/uL Normal 1.00-4.8 [facility] Comment on above: Performed By: #### C BC, BMP, MG #### [address] Lymphocytes/100 WBC (Bld) 9.8 % Normal . [facility] Comment on above: Performed By: #### C BC, BMP, MG #### [address] MCH (RBC) [Entitic mass] 30.5 pg Normal 24.7-34.3 [facility] Comment on above: Performed By: #### C BC, BMP, MG #### [address] MCV (RBC) [Entitic vol] 93.2 fL Normal 80-100 [facility] Comment on above: Performed By: #### C BC, BMP, MG #### [address] Mean Corpuscular HGB Conc 32.8 g/dL Normal 32.0-35.0 [facility] Comment on above: Performed By: #### C BC, BMP, MG #### [facility] [address] [place] [address] [place] Monocytes (Bld) [#/Vol] 1.7 10*3/uL High 0.0-0.8 [facility] Comment on above: Performed By: #### C BC, BMP, MG #### [facility] [address] [place] [address] [place] Monocytes/100 WBC (Bld) 9.9 % Normal . [facility] Comment on above: Performed By: #### C BC, BMP, MG #### [facility] [address] [place] [address] [place] Neutrophils (Bld) [#/Vol] 13.4 10*3/uL High 1.8-7.7 [facility] Comment on above: Performed By: #### C BC, BMP, MG #### [facility] [address] [place] [address] [place] Neutrophils/100 WBC (Bld) 79.0 % Normal . [facility] Comment on above: Performed By: #### C BC, BMP, MG #### [facility] [address] [place] [address] [place] NRBC% 0.0 /100{WBC} Normal 0-0.5 The [facility] Comment on above: Performed By: #### C BC, BMP, MG #### [facility] [address] [place] [address] [place] Platelet mean volume (Bld) [Entitic vol] 9.9 fL Normal 6.3-10.7 The [facility] Comment on above: Performed By: #### C BC, BMP, MG #### [facility] [address] [place] [address] [place] Platelets (Bld) [#/Vol] 251 10*3/uL Normal 150-450 [facility] Comment on above: Performed By: #### C BC, BMP, MG #### [facility] [address] [place] [address] [place] RBC (Bld) [#/Vol] 3.94 10*6/uL Normal 3.60-5.00 The [facility] Comment on above: Performed By: #### C BC, BMP, MG #### [address] WBC (Bld) [#/Vol] 17.0 10*3/uL High 3.8-11.6 The [facility] Comment on above: Performed By: #### C BC, BMP, MG #### [address] Gram Stainon 09-02-2024 Microscopic observation Gram stain Nom (Unsp spec) Comment perirectal abscess Gram Stain Result 4+ White Blood Cells 1+ Gram Positive Cocci 1+ Gram Positive Cocci in Chains Rare Gram Positive Bacilli Rare Gram Negative Bacilli PERFORMED BY: [place] [address] PATHOLOGIST DISK SANDER ENRIQUE TENA M.D. Normal [facility] Comment on above: Performed By: #### G S, AERC #### [address] Gram stainon 09-02-2024 Interpretation and review of laboratory results Abnormal [facility] Microscopic observation Gram stain Nom (Unsp spec) 4+ White Blood Cells Abnormal [facility] Microscopic observation Gram stain Nom (Unsp spec) Negative [facility]normal [facility] Comment perirectal abscess [facility] - Microbiology an d Antimicrobial susceptibilityon 09-02-2024 Microscopic observation Gram stain Nom (Unsp spec) Positive Abnormal [facility] Magnesiumon 09-02-2024 Magnesium [Mass/Vol] 1.8 mg/dL Low 1.9-2.7 [facility] Comment on above: Result Comment: PERF ORMED BY: [place] [address] PATHOLOGIST DISK SANDER ENRIQUE TENA M.D. Performed By: #### C BC, BMP, MG #### [address] Covid-19 PCR (CVDTBH)on 12-19 Covid-19 PCR NOT DETECTED Normal NOT DETECTED [facility] Comment on above: Result Comment: This test is not yet approved or cleared by the [place] FDA. When there are no FDA-approved or cleared tests available, and other criteria are met, FDA can make tests available under an emergency access mechanism called an Emergency Use Authorization (EUA). The EUA for this test is supported by the Internal Controls Specialist of Health and Human Service's (HHS's) declaration [...] consistent with SARS-CoV-2. Performed By: #### C [facility] #### [facility] [address] [address] [place] Marr Vital Signs Date Time Vital Sign Value Performing Clinician Facility 05-30-2025 10:06-0400 Body height 154.94 cm [facility] 05-30-2025 10:06-0400 Body mass index (BMI) [Ratio] 21.1 kg/m2 [facility] 05-30-2025 10:06-0400 Body temperature 98.9 [degF] [facility] 05-30-2025 10:06-0400 Body weight 50.8 kg [facility] 05-30-2025 10:06-0400 Diastolic blood pressure 86 mm[Hg] [facility] 05-30-2025 10:06-0400 Heart rate 81 /min [facility] 05-30-2025 10:06-0400 Respiratory rate 18 /min [facility] 05-30-2025 10:06-0400 SaO2% (BldA) [Mass fraction] 98 % [facility] 05-30-2025 10:06-0400 Systolic blood pressure 131 mm[Hg] [facility] 09-07-2024 14:58-0500 Body height 154.9 cm Cristofer Powell DO Work Phone: [facility] 09-07-2024 14:58-0500 Body mass index (BMI) [Ratio] 23.24 kg/m2 Cristofer Powell DO Work Phone: [facility] 09-07-2024 14:58-0500 Body weight 55.79 kg Cristofer Powell DO Work Phone: [facility] 12-06-2023 11:36-0400 Body height 154.94 cm [facility] 12-06-2023 11:36-0400 Body mass index (BMI) [Ratio] 23.1 kg/m2 [facility] 12-06-2023 11:36-0400 Body temperature 99 [degF] [facility] 12-06-2023 11:36-0400 Body weight 55.56 kg [facility] 12-06-2023 11:36-0400 Heart rate 94 /min [facility] 12-06-2023 11:36-0400 Respiratory rate 18 /min [facility] 12-06-2023 11:36-0400 SaO2% (BldA) [Mass fraction] 99 % [facility] Encounters Encounter Date Encounter Type Care Provider Facility Start: 06-07-2025 End: 06-07-2025 Emergency department patient visit NO PCP NO PCP [facility] Start: 05-30-2025 End: 05-30-2025 ambulatory NON STAFF [facility] Work Phone: Start: 05-30-2025 End: 05-30-2025 Patient encounter procedure Ragini Butler RN [facility] Work Phone: Start: 09-07-2024 End: 09-07-2024 Postop follow up visit related to original px Cristofer Powell DO Work Phone: [facility] Comment on above: Perirectal abscess ( Primary Dx) Start: 09-07-2024 End: 09-07-2024 ambulatory CRISTOFER POWELL Not Available Start: 09-06-2024 End: 09-11-2024 ambulatory Cristofer Powell Facility:[facility] Start: 09-02-2024 End: 09-02-2024 External Result Encounter Cristofer Powell DO Work Phone: [facility] Unsolicited Start: 09-02-2024 End: 09-02-2024 External Result Encounter Cristofer Powell DO Work Phone: [facility] Unsolicited Start: 09-01-2024 End: 09-03-2024 Evaluation and management of inpatient [place] Facility:[facility] Start: 12-06-2023 End: 12-06-2023 ambulatory [facility] Work Phone: Start: 12-06-2023 End: 12-06-2023 Patient encounter procedure [facility] Work Phone: Start: 01-01-2021 End: 01-01-2021 Patient encounter procedure NONE LISTED REQUEST Facility:[facility] Start: 02-19-2020 Patient encounter procedure NONE LISTED REQUEST Facility: Start: 01-11-2018 End: 01-12-2018 Ambulatory DEFAULT PHYSICIAN Facility:[facility] Procedures Date Procedure Procedure Detail Performing Clinician Start: 09-02-2024 Smr prim src gram/gi emsa stain bct fungi/cell Cristofer Powell DO Work Phone: Plan of Treatment Date Care Activity Detail Author Start: 09-26-2024 End: 09-26-2024 Patient encounter procedure 09/26/2024 2:30 PM EST Office Visit [facility] [address] [facility] [address] [place] [address] Cristofer Powell DO [address] [facility] [address] [place] [address] [facility] Payers Date Payer Category Payer Private Health Insurance [id number] 2024 Self-pay 2023 Private Health Insurance [id number] 1983 Unknown [id number] 2.16.84 [id number] 1983 Unknown [id number] 2.16.84 [id number] 1983 Unknown [id number] 2.16.84 [id number] 1983 Unknown [id number] 2.16. [id number] 1959 Unknown [id number] Unknown Unknown [id number] 2.16.8 [id number] Unknown [id number] 2.16.8 [id number] Social History Date Type Detail Facility Start: 12-06-2023 Tobacco smoking stat [facility] Smoker (finding) [facility] Start: 1985 Sex Assigned At Female F [facility] Tobacco smoking stat [facility] Tobacco smoking consumption unknown [facility] Start: 1985 Sex assigned at Not on file [facility] Start: 09-04-2024 Gender identity Not [facility] file [facility] Start: 09-02-2024 End: 09-04-2024 Tobacco smoking status [facility] Smokes tobacco daily [facility] History of tobacco use Cigarette Smoker [facility] Start: 09-04-2024 Tobacco use and exposure Smokeless tobacco non-user [facility] Start: 09-04-2024 Alcoholic beverage intake Current drinker of alcohol (finding) [facility] Start: 09-04-2024 History of Social function [facility] Sex Female (finding) [facility] Clinical Note 06-07-2025 Note Date & Type Note Facility 06-07-2025 Note XR CHEST 2 VWS PROCEDURE: Frontal and lateral views of the chest. INDICATION: cough . COMPARISON: Chest Radiograph Dated 07/02/2011. FINDINGS: Support lines, tubes, devices, surgical hardware, material: None. Lungs and Pleura: See Impression. No sizable pneumothorax. No sizeable pleural effusion. Cardiovascular and Mediastinum: The cardiomediastinal silhouette appears grossly normal. IMPRESSION: No acute cardiopulmonary process. Finalized by Graciela Viera MD on 06/07/2025 11:46 AM [facility] History of Present illness Narrative 09-07-2024 Cristofer Powell, - 09/07/2024 3:15 PM EST Note Date [...] OBJECTIVE: Physical Exam Exam conducted with a ordnance artificer present. Constitutional: Appearance: Normal appearance. She is [...] follow-ups on file. documented in this encounter [facility] Evaluation note Note Date & Type Note Facility Evaluation note No assessment information availa ble [facility] Work Phone: Evaluation note Note Date & Type Note Facility Evaluation note Diagnosis Perirectal abscess- Primary Abscess of anal and rectal regions documented in this encounter [facility] Evaluation note Note Date & Type Note Facility Evaluation note Diagnosis Onset Date Resolution Viral URI with cough acute Sept emb2024 10:04am [facility] Work Phone: Reason for referral (narrative) Note Date & Type Note Facility Reason for referral (narrative) No reason for referral information available [facility] Work Phone: Summary Purpose Family History No Family History Records Found Relationship Condition Age at Onset Recorded Date/T doyle Not Specified Malignant neoplasm Unknown Heart disease Unknown Not Specified Heart disease Unknown Relationship Condition Age at Onset Recorded Date/T doyle maternal grandmother Malignant neoplasm Unknown maternal grandfather Malignant neoplasm Unknown Heart disease Unknown mother Heart disease Unknown Advance Directives No Advanced Directives Records Found Advance Directive Response Recorded Date/ Time Advance Directives No December 05 024 11:15am Chief Complaint and Reason for Visit Chief Complaint cough, sore throat, congestion Chief Complaint Admit Date Cough, congestion, headache, nausea, diz ziness May 30, 2025 10:04am Reason for Visit Admit Date Viral URI with cough May 30 10:04am Additional Source Comments INFORMATION SOURCE (unrecogn ized section and content) DATE CREATED AUTHOR 03/10/[address] [facility] DATE CREATED AUTHOR AUTHOR'S ORGANIZ ATION 01/02/2021 [facility] DATE CREATED AUTHOR AUTHOR'S ORGANIZ ATION 09/11/2024 [facility] EPIC DATE CREATED AUTHOR AUTHOR'S ORGANIZ ATION 10/21/2024 [facility] DATE CREATED AUTHOR AUTHOR'S ORGANIZ ATION 06/08/2025 [facility] Care Teams (unrecognized sec tion and content) Team Status: Active Member Role Status Dates Outreach [facility] Primary Care Provider Active Team Status: Inactive Member Role Status Dates CLOVER Galvan Attending Provider Active S tart: December 06, 2023 End: December 06, 2023 Outreach [facility] Primary Care Provider Active Start: December 06, 2023 End: December 06, 2023 Data Transcriber Relationship Specialty Start Date End Date Unallocated, Anna Provider, [address] [place] [address] PCP - General Family Medicine 09/07/24 Team Status: Active Member Role Status Dates NON STAFF Primary Care Provider Active Team Status: Inactive Member Role Status Dates NON STAFF Primary Care Provider Active Start: May 30, 2025 End: May 30, 2025 Ragini Palumbo APRN Attending Provider Active S tart: May 30, 2025 End: May 30, 2025 Goals (unrecognized section and content) Goals may be documented in a n alternate sectionGoals may be documented in an alternate section Reason for Visit (unrecogniz ed [...] BE BASED ON THE PRIMARY CLINICAL RECORDS. [facility] [employer] provides no warranty or guarantee of the accuracy or completeness of information in this document.
== END 2025-07-09 12:33 | disposition left against medical advice (07) ==
PROVIDERS: Emergency Provider Emergency Medicine
DX: Z53.21 Procedure and treatment not carried out due to patient leaving prior to being seen by health care provider (principal)